=== PATIENT | male | born 2000 | race African-American/Black ===

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

== ENCOUNTER 2022-10-20 09:40 | Emergency (ER) | payer MEDICAID, OTHER ==
[~2022-10-20] VITALS: Ht 190.5 cm; Wt 104.3 kg
[2022-10-20] MEDS ORDERED: CEFTRIAXONE 500 MG VIAL ONE (10:26)
[2022-10-20] MEDS ORDERED: DOXYCYCLINE HYCLATE (100 MG) 100 MG TABLET ONE (10:26)
[2022-10-20] MEDS ORDERED: DOXYCYCLINE HYCLATE (100 MG) 100 MG TABLET PO ONE (10:30)
[2022-10-20] MEDS ORDERED: CEFTRIAXONE 500 MG VIAL IM ONE (10:30)
[2022-10-20] MEDS ORDERED: DOXY100C2 PO (10:34)
[2022-10-20 10:53] VITALS: BP 132/85; TEMP 98.8; O2SAT 100
[2022-10-20 10:57] LABS: APPEARANCE,URINE SLIGHTLY CLOUDY (CLEAR); BILIRUBIN,URINE NEGATIVE (NEGATIVE); BLOOD, URINE 3+ Ery/uL (NEGATIVE); COLOR,URINE YELLOW (YELLOW); KETONES,URINE NEGATIVE (NEGATIVE); LEUKOCYTE ESTERASE ,URINE 1+ (NEGATIVE); NITRITE, URINE NEGATIVE (NEGATIVE); PROTEIN,URINE 2+ mg/dl (NEGATIVE); UGLUCOSE NEGATIVE (NEGATIVE)
[2022-10-20 11:04] LABS: ADD URINE CULTURE YES; BACTERIA,URINE Few /HPF (None Seen); SQUAMOUS EPITHELIAL CELL,UR Few /HPF (None Seen)
[2022-10-20 14:39] LABS: HIV-1 p24 ANTIGEN NON REACTIVE (NONREACTIVE); HIV-1/2 ANTIBODY NON REACTIVE (NONREACTIVE)
[2022-10-23 05:08] LABS: RAPID PLASMA REAGIN QUAL. Non Reactive (Non Reactive)
[2022-10-24 02:06] LABS: CHLAMYDIA TRACHOMATIS NAA Positive (Negative); NEISSERIA GONORRHOEAE NAA Positive (Negative)
== END 2022-10-20 10:53 | disposition home or self-care (01) ==
LOC: ER 09:46
DX: N34.2 Other urethritis (principal); R31.9 Hematuria, unspecified; R30.0 Dysuria; F17.200 Nicotine dependence, unspecified, uncomplicated; Z79.899 Other long term (current) drug therapy
CPT/HCPCS: 99283; 86592; 86593; 96372; 87086; 81001; 36415; 87806; 87491; 87591; J0696

== ENCOUNTER 2022-11-17 09:59 | Emergency (ER) | payer MEDICAID, OTHER ==
[~2022-11-17] VITALS: Ht 190.5 cm; Wt 99.8 kg
[~2022-11-17 09:59] MED LIST: DOXY100C2 PO
[2022-11-17 10:05] VITALS: BP 128/64; TEMP 98.4; O2SAT 100
[2022-11-17] MEDS ORDERED: NEOM10DR11 RIGHT EAR (10:08)
== END 2022-11-17 11:09 | disposition home or self-care (01) ==
LOC: ER 10:01
DX: H61.21 Impacted cerumen, right ear (principal); F17.200 Nicotine dependence, unspecified, uncomplicated